=== PATIENT | male | born 1970 | race Caucasian/White ===

== ENCOUNTER 2017-11-06 12:56 | Emergency (ER) | payer SELFPAY ==
[~2017-11-06] VITALS: Ht 177.8 cm; Wt 93.2 kg
[2017-11-06 13:17] VITALS: Ht 177.8 cm; Wt 93.2 kg
[2017-11-06] MEDS ORDERED: CLEOCIN HCL300 MG PO (16:16)
[2017-11-06 16:41] VITALS: BP 131/80
== END 2017-11-06 16:41 | disposition home or self-care (01) ==
LOC: D.ER 12:56
DX: S51.041A Puncture wound with foreign body of right elbow, initial encounter (principal); X58.XXXA Exposure to other specified factors, initial encounter; Y93.89 Activity, other specified; Y92.019 Unspecified place in single-family (private) house as the place of occurrence of the external cause; F17.200 Nicotine dependence, unspecified, uncomplicated

== ENCOUNTER 2020-06-21 10:31 | Inpatient (IN) | payer MEDICAID ==
[~2020-06-21] VITALS: Ht 177.8 cm; Wt 101.4 kg
--- NOTE | ~2020-06-21 | EC ---
PATIENT:SHELDON DOUGLAS DATE OF SERVICE: 06/21/20 SEX: M MEDICAL RECORD: [id number] DATE OF : 68 LOCATION:D.M2 D.212 AGE OF PATIENT: 49 ADMISSION DATE: 06/21/20 REFERRING PHYSICIAN: INTERPRETING PHYSICIAN: VANESSA CISNEROS MD ECHOCARDIOGRAM REPORT ECHO CHARGES 4 ECHO COMPLETE Date: 06/22/20 CLINICAL DIAGNOSIS: NEW ONSET CHF ECHOCARDIOGRAPHIC MEASUREMENTS (adult normal given) AC root (d.<3.7cm) 3.7 cm LV Septum d (<1.2 cm> 0.7 cm Valve Excursion 2.2 cm LV Septum (systole) 1.3 cm Left Atria (s.<4.0cm> 4.4 cm LVPW d(<1.2cm) 0.9 cm RV (d.<2.3cm) 4.0 cm LVPW (sytole) 1.4 cm LV diastole(<5.6CM) 7.4 cm MV E-F(>70mm/sec) cm LV systole 6.0 cm LVOT Diameter 2.1 cm MV exc.(>10mm) 1.2 cm Est.ejection fraction (50-75%) % DOPPLER: LVIT cm/sec A 53 cm/sec E 117 cm/sec LA cm/sec RVSP 40 mmHg LVOT 55 cm/sec AOP1/2T m/s Asc. 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 Cisneros TAPE# Pericardial Effusion N DATE OF SERVICE: CLINICAL INDICATION: CHF. INTERPRETATION: Dilated left ventricular chamber with severe global LV contractile dysfunction with ejection fraction of 30% to 35%. Left atrial chamber dilatation. Right atrium and right ventricular chamber size and function appears normal. Aortic valve appears normal. No aortic stenosis/regurgitation. Mitral valve is mildly thickened. Mild to moderate mitral regurgitation. Tricuspid valve appears normal. Mild tricuspid ECHOCARDIOGRAM REPORT [id number] SHELDON DOUGLAS regurgitation. Pulmonic valve appears normal. No pulmonic regurgitation. No pericardial effusion visualized. IMPRESSION: Dilated left ventricular chamber with severe global left ventricular contractile dysfunction, ejection fraction 30% to 35%. 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
[~2020-06-21 10:31] MED LIST: CLEOCIN HCL300 MG PO
[2020-06-21 11:08] LABS: CALC OSMOLALITY 281 mosm/kg (275-300); CALCIUM 8.5 mg/dL (8.5-10.1); CHLORIDE - SERUM 104 mmol/L (98-107); CREATININE - SERUM 1.2 mg/dL (0.6-1.3); GLUCOSE 131 mg/dL (74-106); POTASSIUM - SERUM 4.2 mmol/L (3.5-5.1); SODIUM 138 mmol/L (136-145); UREA NITROGEN 23 mg/dL (7-18); eGFR NON AFRICAN AMERICAN 68 mL/min (90-120)
[2020-06-21 11:10] LABS: APTT 24.2 SECONDS (22.8-39.4); INR 1.09 (0.85-1.17); PROTIME 13.1 SECONDS (11.6-15.0)
[2020-06-21 11:24] LABS: BASOPHILS 0.4 % (0-2); EOSINOPHILS 1.9 % (0-7); HEMATOCRIT 39.4 % (42.0-54.0); HEMOGLOBIN 12.7 g/dL (13.5-17.5); IMMATURE GRANULOCYTES 0.3 % (0-5); LYMPHOCYTE ABS# 1.42 10x3/uL (1.32-3.57); LYMPHOCYTES 19.2 % (15-50); MCH 27.7 pg (26.0-34.0); MCHC 32.2 g/dL (31.0-37.0); MCV 85.8 fL (80.0-100.0); MEAN PLATELET VOLUME 10.3 fL (7.4-10.4); MONOCYTES 6.8 % (2-11); NEUTROPHIL ABS# 5.27 10x3/uL (1.78-5.38); NEUTROPHILS 71.4 % (40-80); PLATELET COUNT 252 10x3/uL (130-400); RBC 4.59 10x6/uL (4.20-6.10); RDW 14.7 % (11.5-14.5); WBC 7.4 10x3/uL (4.8-10.8)
[2020-06-21 11:25] LABS: ALBUMIN 3.1 g/dL (3.4-5.0); ALKALINE PHOSPHATASE 97 U/L (30-120); ALT (SGPT) 36 U/L (10-68); AMYLASE - SERUM 28 U/L (25-115); BILIRUBIN - TOTAL 0.71 mg/dL (0.2-1.3); CKMB 5.2 U/L (0.0-3.6); CREATINE KINASE 355 UL (21-232); LIPASE 137 U/L (73-393); PRO BNP 3183 pg/mL (0-125); PROTEIN - SERUM 7.3 g/dL (6.4-8.2); TROPONIN-I 0.023 ng/mL (0.000-0.060)
[2020-06-21 14:45] VITALS: BP 125/97
[2020-06-21 14:48] LABS: CKMB 4.9 U/L (0.0-3.6); CREATINE KINASE 348 UL (21-232); TROPONIN-I 0.026 ng/mL (0.000-0.060)
[2020-06-21 14:49] LABS: CKMB 5.1 U/L (0.0-3.6); CREATINE KINASE 354 UL (21-232); TROPONIN-I 0.025 ng/mL (0.000-0.060)
--- NOTE | 2020-06-21 14:55 | NUR ---
ROCEPHIN INFUSION TO BE STOPPED AT 1510
--- NOTE | 2020-06-21 15:05 | NUR ---
Received to unit from ER via w/c accompanied by hospital staff, oriented to unit, oriented to room, oriented to bed controls, currently lying in bed, awake/alert/oriented, T/R self ad jacinda, cont of B/B with BRPs per self ad jacinda, denies pain/other discomfort at this time, call light/phone/water within reachy, no s/s of acute distress observed.
[2020-06-21 16:14] VITALS: BP 134/90
[2020-06-21 16:49] VITALS: BP 134/90; Ht 177.8 cm; Wt 101.4 kg
[2020-06-21 20:00] VITALS: BP 139/86
--- NOTE | 2020-06-21 20:14 | NUR ---
RECIEVED LAYING IN BED WITH EYES OPEN AN DTV ON. ALERT AND ORIETNED X4. UP AD ARELY TO B/R. IV TO LT HAND SL. DENIES ANY NEEDS AT THIS TIME.
[2020-06-22] VITALS: BP 135/83
[2020-06-22 04:00] VITALS: BP 145/89
[2020-06-22 05:30] LABS: ALBUMIN 3.1 g/dL (3.4-5.0); ALKALINE PHOSPHATASE 92 U/L (30-120); ALT (SGPT) 32 U/L (10-68); BILIRUBIN - TOTAL 0.66 mg/dL (0.2-1.3); CALC OSMOLALITY 275 mosm/kg (275-300); CALCIUM 8.6 mg/dL (8.5-10.1); CARBON DIOXIDE 26.2 mmol/L (21.0-32.0); CHLORIDE - SERUM 100 mmol/L (98-107); CKMB 3.3 U/L (0.0-3.6); CREATINE KINASE 295 UL (21-232); CREATININE - SERUM 1.2 mg/dL (0.6-1.3); GLUCOSE 135 mg/dL (74-106); POTASSIUM - SERUM 4.8 mmol/L (3.5-5.1); PROTEIN - SERUM 7.5 g/dL (6.4-8.2); SODIUM 136 mmol/L (136-145); TROPONIN-I < 0.017 ng/mL (0.000-0.060); UREA NITROGEN 18 mg/dL (7-18); eGFR NON AFRICAN AMERICAN 68 mL/min (90-120)
[2020-06-22 05:51] LABS: BASOPHILS 0.1 % (0-2); EOSINOPHILS 0 % (0-7); HEMATOCRIT 40.3 % (42.0-54.0); HEMOGLOBIN 13.1 g/dL (13.5-17.5); IMMATURE GRANULOCYTES 0.2 % (0-5); LYMPHOCYTE ABS# 0.57 10x3/uL (1.32-3.57); LYMPHOCYTES 6.8 % (15-50); MCH 27.8 pg (26.0-34.0); MCHC 32.5 g/dL (31.0-37.0); MCV 85.6 fL (80.0-100.0); MEAN PLATELET VOLUME 10.3 fL (7.4-10.4); MONOCYTES 4.7 % (2-11); NEUTROPHIL ABS# 7.35 10x3/uL (1.78-5.38); NEUTROPHILS 88.2 % (40-80); PLATELET COUNT 274 10x3/uL (130-400); RBC 4.71 10x6/uL (4.20-6.10); RDW 14.5 % (11.5-14.5); WBC 8.3 10x3/uL (4.8-10.8)
--- NOTE | 2020-06-22 07:20 | NUR ---
Lying in bed, awake/alert/oriented, T/R self ad jacinda, cont of B/B with BRPs per self d jacinda, denies pain/other discomfort at this time, call light/phone/water within reach, no s/s of acute distress observed.
[2020-06-22 07:58] VITALS: BP 129/87
[2020-06-22 10:12] LABS: HEPATITIS C ANTIBODY <0.1 S/CO RAT (0.0-0.9)
--- NOTE | 2020-06-22 10:27 | NUR ---
Pt in a w/c scooting down the mejia, when asked where he's going he states "I'M going to get a drink, they said everything was ok and I'll be going home today" No orders located, explained to pt that he can't eat/drink until I get an order in case there is more testing to be done.
--- NOTE | 2020-06-22 10:32 | NUR ---
Pt comes back to desk stating "He's not doing anything else and he's over there (pointing) typing on the computer", I again explained the process and took off toward the elevator
--- NOTE | 2020-06-22 10:46 | NUR ---
When pt took off in the chair toward the elevator this nurse called security, updated him on what situation is, security went to find pt.
--- NOTE | 2020-06-22 13:58 | NUR ---
Provided written/verbal discharge instructions/education to which he stated understanding
--- NOTE | 2020-06-22 14:05 | NUR ---
Discontinued IV access/cardiac telemetry monitoring.
--- NOTE | 2020-06-22 14:11 | NUR ---
Discharged home to self care in stable condition via w/c accompanied by hospital staff, no s/s of acute distress observed.
== END 2020-06-22 14:12 | disposition home or self-care (01) | DRG 293 ==
LOC: D.ER 10:31 → D.M2 13:38
PROVIDERS: Family Medicine; ADMIT Family Medicine; ATTEND Family Medicine
DX: I50.9 Heart failure, unspecified (principal); K59.00 Constipation, unspecified; F17.200 Nicotine dependence, unspecified, uncomplicated; J44.9 Chronic obstructive pulmonary disease, unspecified